=== PATIENT | female | born 1955 | race African-American/Black ===

== ENCOUNTER 2018-01-02 11:36 | Emergency (ER) | payer SELFPAY ==
[~2018-01-02] VITALS: Ht 152.4 cm; Wt 59.0 kg
[2018-01-02] MEDS ORDERED: ONDANSETRON HCL 4 MG/2 ML VIAL IV ONE (11:45)
[2018-01-02] MEDS ORDERED: LORazepam 2MG/ML-1ML VIAL IV ONE (11:45)
[2018-01-02] MEDS ORDERED: HYDROmorphone HCL 2 MG/ML VL IV ONE (11:45)
[2018-01-02 12:45] VITALS: BP 134/83
== END 2018-01-02 13:49 | disposition home or self-care (01) ==
LOC: ER 11:36
DX: M54.9 Dorsalgia, unspecified (principal); M79.1 Myalgia; G89.29 Other chronic pain; Z88.6 Allergy status to analgesic agent; F17.210 Nicotine dependence, cigarettes, uncomplicated; Z98.51 Tubal ligation status
CPT/HCPCS: 94761; 96374; 96375; 99284; J1170; J2060; J2405